=== PATIENT | female | born 2000 | race Asian ===

== ENCOUNTER 2019-07-30 20:46 | Emergency (ER) | payer OTHER, SELFPAY ==
[2019-07-30] MEDS ORDERED: diphenhydrAMINE 50 MG/ML VIAL ONE (21:24)
[2019-07-30] MEDS ORDERED: Ketorolac Tromethamine 30 MG/ML VIAL ONE (21:24)
[2019-07-30] MEDS ORDERED: methylPREDNISolone Sod Succ/PF 125 MG/2 ML VIAL ONE (21:24)
[2019-07-30] MEDS ORDERED: Metoclopramide HCl 10 MG/2 ML VIAL ONE (21:25)
--- NOTE | 2019-07-30 21:53 | CT ---
CT BRAIN NONCONTRAST: DATE: 07/30/2019 HISTORY: 19-year-old female with persistent posttraumatic headache after head injury 4 weeks ago FINDINGS: There is no evidence of acute intra-axial or extra-axial hemorrhage. There is no midline shift or any other mass effect. There is no extra-axial fluid collection. The ventricles are normal in size and configuration. The tympanomastoid cavities, and the upper portions of the paranasal sinuses included in these images, are grossly clear. Calvarium is intact. IMPRESSION: Normal.
== END 2019-07-30 22:51 | disposition home or self-care (01) ==
LOC: SCSER 20:46
DX: R51 Headache (principal)
CPT/HCPCS: 70450; 96365; 96375; J1200; J1885; J2765; J2930